=== PATIENT | female | born 1990 | race Caucasian/White ===

== ENCOUNTER 2018-10-26 16:48 | Emergency (ER) | payer MEDICAID ==
[~2018-10-26] VITALS: Ht 161.3 cm; Wt 96.0 kg
[~2018-10-26 16:48] MED LIST: BACTRIM DS1 TAB PO; CIPROFLOXACN500 MG PO; CYCLOBENZAPR10 MG PO; DIFLUCAN100 MG PO; GLYBURID MCR1.5 MG PO; LORTAB 7.5 PO; MACRODANTIN100 MG PO; MOBIC15 M1 PO; NAPROSYN500 MG OR; NAPROXEN500 MG PO; NO HOME MEDS; ORTHO TRI-CYCLEN LO OR; PRENATAL1 TA1; TRAMADOL HCL50 MG PO; ULTRAM50 M1 PO; ZOFRAN ODT4 MG PO; ZOFRAN ODT8 MG PO; ZOFRAN4 MG/TAB PO
[2018-10-26] MEDS ORDERED: LYRICA25 MG PO (17:00)
[2018-10-26] MEDS ORDERED: ATIVAN1 MG PO (17:00)
[2018-10-26] MEDS ORDERED: ADDERALL20 MG PO (17:00)
[2018-10-26] MEDS ORDERED: LYRICA75 MG PO (17:15)
[2018-10-26] MEDS ORDERED: LORAZEPAM0.5 MG PO (17:15)
[2018-10-26] MEDS ORDERED: ADDERALL XR20 MG PO (17:16)
[2018-10-26] MEDS ORDERED: OXCARBAZEPINE300 MG PO (17:16)
[2018-10-26] MEDS ORDERED: JENCYCLA0.35 MG PO (17:17)
[2018-10-26] MEDS ORDERED: CYCLOBENZAPR10 MG PO (17:17)
[2018-10-26] MEDS ORDERED: PAROXETINE HCL30 MG PO (17:17)
[2018-10-26] MEDS ORDERED: GABAPENTIN400 M2 PO (17:18)
[2018-10-26] MEDS ORDERED: PERCOCET 10/31 COMBO PO (18:15)
[2018-10-26 18:40] VITALS: BP 118/86
== END 2018-10-26 18:40 | disposition home or self-care (01) ==
LOC: ED 16:48
DX: S82.64XA Nondisplaced fracture of lateral malleolus of right fibula, initial encounter for closed fracture (principal); W22.8XXA Striking against or struck by other objects, initial encounter; Y93.19 Activity, other involving water and watercraft; Y92.009 Unspecified place in unspecified non-institutional (private) residence as the place of occurrence of the external cause

== ENCOUNTER 2019-07-04 20:12 | Emergency (ER) | payer OTHER, MEDICAID ==
[~2019-07-04] VITALS: Ht 161.3 cm; Wt 91.3 kg
[~2019-07-04 20:12] MED LIST changes: +ADDERALL XR20 MG PO; +ADDERALL20 MG PO; +ATIVAN1 MG PO; +GABAPENTIN400 M2 PO; +JENCYCLA0.35 MG PO; +LORAZEPAM0.5 MG PO; +LYRICA25 MG PO; +LYRICA75 MG PO; +OXCARBAZEPINE300 MG PO; +PAROXETINE HCL30 MG PO; +PERCOCET 10/31 COMBO PO
[2019-07-04] MEDS ORDERED: VOLTAREN - GENE75 MG PO (23:26)
[2019-07-04 23:46] VITALS: BP 129/78
== END 2019-07-04 23:46 | disposition home or self-care (01) | DRG 563 ==
LOC: ED 20:12
DX: S39.012A Strain of muscle, fascia and tendon of lower back, initial encounter (principal); F17.200 Nicotine dependence, unspecified, uncomplicated; V49.40XA Driver injured in collision with unspecified motor vehicles in traffic accident, initial encounter

== ENCOUNTER 2019-08-28 | Emergency (ER) | payer MEDICAID ==
[~2019-08-28] MED LIST changes: +VOLTAREN - GENE75 MG PO
[2019-08-28] MEDS ORDERED: CLONAZEPAM0.5 M1 PO (20:33)
--- NOTE | 2019-08-28 20:33 | NUR ---
BREATHING TREATMENT GIVEN BACK TO BACK FOR WHEEZING.
[2019-08-28 20:56] LABS: HEMATOCRIT 40.5 % (37.0-47.0); IMMATURE GRANULOCYTES 0.3 % (0.0-5.0); MEAN CELL VOLUME 94.2 fL CALC (80.0-100.0); MEAN CORPUSCULAR HGB 30.2 pG CALC (26.0-32.0); MEAN CORPUSCULAR HGB CONC 32.1 g/L CALC (32.0-36.0); NEUT# 9.39 thou/uL (2.00-7.15); RED BLOOD COUNT 4.3 mill/uL (4.20-5.60); RED CELL DISTRI WIDTH 13.1 % (11.5-15.5)
[2019-08-28] MEDS ORDERED: CLARITHROMYCIN500 MG PO (22:16)
== END 2019-08-28 22:42 | disposition home or self-care (01) ==
PROVIDERS: Family Medicine
DX: J40 Bronchitis, not specified as acute or chronic (principal); F17.210 Nicotine dependence, cigarettes, uncomplicated

== ENCOUNTER 2019-11-21 | Emergency (ER) | payer MEDICAID ==
[~2019-11-21] MED LIST changes: +CLARITHROMYCIN500 MG PO; +CLONAZEPAM0.5 M1 PO
[2019-11-21 14:59] LABS: HEMOGLOBIN 12.3 g/dl (12.0-16.0); IMMATURE GRANULOCYTES 0.2 % (0.0-5.0); MEAN CELL VOLUME 92.5 fL CALC (80.0-100.0); MEAN CORPUSCULAR HGB 30.8 pG CALC (26.0-32.0); MEAN CORPUSCULAR HGB CONC 33.2 g/dL CAL (32.0-36.0); NEUT# 8.11 thou/uL (2.00-7.15); RED CELL DISTRI WIDTH 13.1 % (11.5-15.5)
[2019-11-21] MEDS ORDERED: ALPRAZOLAM1 MG PO (15:15)
[2019-11-21 15:21] LABS: ALBUMIN 4.3 g/dL (3.2-5.0); ALKALINE PHOSPHATASE 46 u/l (38-126); ANION GAP 13 (6-22 (CALC)); BILIRUBIN, TOTAL 0.5 mg/dL (0.0-1.4); BUN 8 mg/dL (7-17); BUN/CREATININE RATIO 12 (12-20 (CALC)); CARBON DIOXIDE 25 mmol/l (22-30); CHLORIDE 103 mmol/l (95-108); CREATININE 0.6 mg/dL (0.5-1.0); GFR > 60 ML/MIN (>=60 (CALC)); GFR FOR AFR.AMER. > 60 ML/MIN (>=60 (CALC)); POTASSIUM 3.9 mmol/l (3.5-5.1); SGOT/AST 25 u/l (14-36); SODIUM 137 mmol/l (137-146); TOTAL PROTEIN 7.1 g/dL (6.3-8.2)
[2019-11-21 15:36] LABS: BETA-HCG, QUANT(RESULT NUMBER) 2546 mIU/mL
[2019-11-21 16:10] LABS: URINE BILIRUBIN - DIPSTICK NEGATIVE (NEGATIVE); URINE BLOOD DIPSTICK MODERATE (NEGATIVE); URINE COLOR YELLOW; URINE GLUCOSE - DIPSTICK NEGATIVE (NEGATIVE); URINE KETONE NEGATIVE (NEGATIVE); URINE LEUK ESTERASE NEGATIVE (NEGATIVE); URINE NITRITE - DIPSTICK NEGATIVE (Negative); URINE PROTEIN - DIPSTICK NEGATIVE (NEG-TRACE); URINE SPECIFIC GRAVITY >=1.030; URINE UROBILINOGEN - DIPSTICK 0.2 E.U./dL (0.2)
[2019-11-21 16:15] LABS: URINE SQUAMOUS EPITHELIAL CELL FEW EPI/hpf (0-FEW)
== END 2019-11-21 16:43 | disposition home or self-care (01) ==
DX: O26.891 Other specified pregnancy related conditions, first trimester (principal); R10.2 Pelvic and perineal pain; O99.331 Smoking (tobacco) complicating pregnancy, first trimester; F17.200 Nicotine dependence, unspecified, uncomplicated; O34.81 Maternal care for other abnormalities of pelvic organs, first trimester; N83.201 Unspecified ovarian cyst, right side; Z3A.01 Less than 8 weeks gestation of pregnancy

== ENCOUNTER 2020-01-20 13:36 | Emergency (ER) | payer MEDICAID ==
[~2020-01-20] VITALS: Ht 161.3 cm; Wt 81.8 kg
[~2020-01-20 13:36] MED LIST changes: +ALPRAZOLAM1 MG PO
[2020-01-20] MEDS ORDERED: BUSPAR10 M1 PO (14:12)
[2020-01-20 14:21] LABS: HEMATOCRIT 36.7 % (37.0-47.0); HEMOGLOBIN 12.3 g/dl (12.0-16.0); IMMATURE GRANULOCYTES 0.3 % (0.0-5.0); MEAN CELL VOLUME 92.4 fL CALC (80.0-100.0); MEAN CORPUSCULAR HGB CONC 33.5 g/dL CAL (32.0-36.0); NEUT# 7.53 thou/uL (2.00-7.15); RED BLOOD COUNT 3.97 mill/uL (4.20-5.60); RED CELL DISTRI WIDTH 12.9 % (11.5-15.5)
[2020-01-20 14:22] LABS: URINE BILIRUBIN - DIPSTICK NEGATIVE (NEGATIVE); URINE BLOOD DIPSTICK LARGE (NEGATIVE); URINE COLOR RED; URINE GLUCOSE - DIPSTICK 100 mg/dL (NEGATIVE); URINE KETONE TRACE mg/dL (NEGATIVE); URINE LEUK ESTERASE TRACE (NEGATIVE); URINE PROTEIN - DIPSTICK 100 mg/dL (NEG-TRACE); URINE SPECIFIC GRAVITY >=1.030
[2020-01-20 14:38] LABS: URINE NITRITE - DIPSTICK POSITIVE (Negative)
[2020-01-20 14:39] LABS: URINE BACTERIA FEW hpf; URINE RBC TNTC RBC/hpf (0-5); URINE SQUAMOUS EPITHELIAL CELL FEW EPI/hpf (0-FEW)
[2020-01-20 14:41] LABS: ALBUMIN 4.3 g/dL (3.2-5.0); ALKALINE PHOSPHATASE 44 u/l (38-126); ANION GAP 12 (6-22 (CALC)); BILIRUBIN, TOTAL 0.3 mg/dL (0.0-1.4); BUN 4 mg/dL (7-17); BUN/CREATININE RATIO 8 (12-20 (CALC)); CARBON DIOXIDE 21 mmol/l (22-30); CHLORIDE 102 mmol/l (95-108); CREATININE 0.5 mg/dL (0.5-1.0); GFR > 60 ML/MIN (>=60 (CALC)); GFR FOR AFR.AMER. > 60 ML/MIN (>=60 (CALC)); POTASSIUM 3.9 mmol/l (3.5-5.1); SGOT/AST 21 u/l (14-36); SODIUM 132 mmol/l (137-146)
[2020-01-20 15:31] LABS: BETA-HCG, QUANT(RESULT NUMBER) 62527 mIU/mL
[2020-01-20] MEDS ORDERED: KEFLEX500 M1 PO (17:00)
[2020-01-20 17:08] VITALS: BP 101/64
== END 2020-01-20 17:11 | disposition home or self-care (01) ==
LOC: ED 13:36
DX: O46.91 Antepartum hemorrhage, unspecified, first trimester (principal); O23.41 Unspecified infection of urinary tract in pregnancy, first trimester; O99.331 Smoking (tobacco) complicating pregnancy, first trimester; F17.210 Nicotine dependence, cigarettes, uncomplicated; Z3A.13 13 weeks gestation of pregnancy

== ENCOUNTER 2020-06-21 13:48 | Emergency (ER) | payer MEDICAID ==
[~2020-06-21] VITALS: Ht 161.3 cm; Wt 75.0 kg
[~2020-06-21 13:48] MED LIST changes: +BUSPAR10 M1 PO; +KEFLEX500 M1 PO
[2020-06-21 14:27] LABS: URINE BLOOD DIPSTICK LARGE (NEGATIVE); URINE COLOR YELLOW; URINE GLUCOSE - DIPSTICK NEGATIVE (NEGATIVE); URINE KETONE TRACE mg/dL (NEGATIVE); URINE LEUK ESTERASE TRACE (Negative); URINE NITRITE - DIPSTICK NEGATIVE (Negative); URINE PROTEIN - DIPSTICK 30 mg/dL (NEG-TRACE); URINE SPECIFIC GRAVITY >=1.030; URINE UROBILINOGEN - DIPSTICK 0.2 E.U./dL (0.2)
[2020-06-21 14:39] LABS: URINE BILIRUBIN - DIPSTICK NEGATIVE (NEGATIVE); URINE CLARITY CLOUDY
[2020-06-21 14:40] LABS: URINE RBC 25-50 RBC/hpf (0-5)
[2020-06-21 14:41] LABS: URINE BACTERIA RARE hpf; URINE MUCUS MODERATE hpf (NONE-FEW); URINE SQUAMOUS EPITHELIAL CELL MODERATE EPI/hpf (0-FEW)
[2020-06-21] MEDS ORDERED: BUPROPION HCL150 M1 PO (15:00)
[2020-06-21] MEDS ORDERED: ADDERALL20 MG PO (15:00)
[2020-06-21] MEDS ORDERED: DESYREL50 MG PO (15:01)
[2020-06-21 15:45] VITALS: BP 116/74
== END 2020-06-21 15:45 | disposition home or self-care (01) ==
LOC: ED 13:48
DX: G89.29 Other chronic pain (principal); M54.5 Low back pain; M54.6 Pain in thoracic spine; F17.200 Nicotine dependence, unspecified, uncomplicated

== ENCOUNTER 2021-05-31 07:30 | Day surgery (SDC) | payer MEDICAID ==
[~2021-05-31] VITALS: Ht 161.3 cm; Wt 72.6 kg
[~2021-05-31 07:30] MED LIST changes: +BUPROPION HCL150 M1 PO; +DESYREL50 MG PO; +MOTRIN800 MG PO
[2021-05-31] MEDS ORDERED: LOSARTAN/HCT1 TA1 PO (07:50)
[2021-05-31 09:43] VITALS: BP 112/84
== END 2021-05-31 09:40 | disposition home or self-care (01) ==
LOC: ORM 07:30
PROVIDERS: ATTEND Surgery
DX: K29.50 Unspecified chronic gastritis without bleeding (principal); F17.200 Nicotine dependence, unspecified, uncomplicated; Z90.49 Acquired absence of other specified parts of digestive tract

== ENCOUNTER 2021-06-23 11:10 | Emergency (ER) | payer MEDICAID ==
[~2021-06-23] VITALS: Ht 161.3 cm; Wt 70.4 kg
[~2021-06-23 11:10] MED LIST changes: +LOSARTAN/HCT1 TA1 PO; +OMEPRAZOLE20 MG PO
[2021-06-23] MEDS ORDERED: TIZANIDINE4 MG PO (11:28)
[2021-06-23] MEDS ORDERED: TOPIRAMATE25 M1 PO (11:29)
[2021-06-23 11:47] LABS: HEMATOCRIT 41.2 % (37.0-47.0); HEMOGLOBIN 13.5 g/dl (12.0-16.0); IMMATURE GRANULOCYTES 0.2 % (0.0-5.0); MEAN CELL VOLUME 92.8 fL CALC (80.0-100.0); MEAN CORPUSCULAR HGB 30.4 pG CALC (26.0-32.0); MEAN CORPUSCULAR HGB CONC 32.8 g/dL CAL (32.0-36.0); NEUT# 9.83 thou/uL (2.00-7.15); RED BLOOD COUNT 4.44 mill/uL (4.20-5.60); RED CELL DISTRI WIDTH 12.1 % (11.5-15.5)
[2021-06-23 11:55] LABS: URINE BILIRUBIN - DIPSTICK NEGATIVE (NEGATIVE); URINE BLOOD DIPSTICK TRACE-INTACT (NEGATIVE); URINE COLOR YELLOW; URINE GLUCOSE - DIPSTICK NEGATIVE (NEGATIVE); URINE KETONE NEGATIVE (NEGATIVE); URINE LEUK ESTERASE NEGATIVE (NEGATIVE); URINE PH 8.5 (4.5-8.0); URINE PROTEIN - DIPSTICK 30 mg/dL (NEG-TRACE); URINE UROBILINOGEN - DIPSTICK 0.2 E.U./dL (0.2)
[2021-06-23 12:04] LABS: URINE EPITHELIAL CELLS MODERATE EPI/hpf (0-FEW); URINE NITRITE - DIPSTICK NEGATIVE (Negative); URINE RBC 0-2 RBC/hpf (0-5)
[2021-06-23 12:09] LABS: ACT PARTIAL THROMBO TIME 20.9 SECONDS (20.0-32.5); PROTHROMBIN TIME 10.4 SECONDS (9.0-12.5)
[2021-06-23 12:12] LABS: ALKALINE PHOSPHATASE 42 u/l (38-126); ANION GAP 8 (6-22 (CALC)); BILIRUBIN, TOTAL 0.4 mg/dL (0.0-1.4); BUN 8 mg/dL (7-17); BUN/CREATININE RATIO 11 (12-20 (CALC)); CARBON DIOXIDE 30 mmol/l (22-30); CHLORIDE 103 mmol/l (95-108); CREATININE 0.7 mg/dL (0.5-1.0); ETHYL ALCOHOL 0 mg/dl (0-30); GFR > 60 ML/MIN (>=60 (CALC)); GFR FOR AFR.AMER. > 60 ML/MIN (>=60 (CALC)); LIPASE 108 u/l (23-300); POTASSIUM 3.7 mmol/l (3.5-5.1); SGOT/AST 45 u/l (14-36); SODIUM 137 mmol/l (137-146); TOTAL PROTEIN 7.2 g/dL (6.3-8.2)
[2021-06-23 13:47] VITALS: BP 106/63
== END 2021-06-23 13:47 | disposition home or self-care (01) ==
LOC: ED 11:10
DX: R55 Syncope and collapse (principal); S00.83XA Contusion of other part of head, initial encounter; S16.1XXA Strain of muscle, fascia and tendon at neck level, initial encounter; M54.50 Low back pain, unspecified; G89.29 Other chronic pain; I10 Essential (primary) hypertension; F17.210 Nicotine dependence, cigarettes, uncomplicated; W18.39XA Other fall on same level, initial encounter; Y92.002 Bathroom of unspecified non-institutional (private) residence as the place of occurrence of the external cause; Z20.822 Contact with and (suspected) exposure to COVID-19

== ENCOUNTER 2022-02-28 16:53 | Emergency (ER) | payer MEDICAID ==
[~2022-02-28] VITALS: Ht 161.3 cm; Wt 77.2 kg
[2022-02-28] VITALS (13 sets, daily range): BP systolic 98–131; BP diastolic 63–95
[~2022-02-28 16:53] MED LIST changes: +TIZANIDINE4 MG PO; +TOPIRAMATE25 M1 PO
[2022-02-28 17:45] LABS: HEMATOCRIT 34.1 % (37.0-47.0); HEMOGLOBIN 11.2 g/dl (12.0-16.0); IMMATURE GRANULOCYTES 0.1 % (0.0-5.0); MEAN CELL VOLUME 95.8 fL CALC (80.0-100.0); MEAN CORPUSCULAR HGB 31.5 pG CALC (26.0-32.0); MEAN CORPUSCULAR HGB CONC 32.8 g/dL CAL (32.0-36.0); NEUT# 6.6 thou/uL (2.00-7.15); RED BLOOD COUNT 3.56 mill/uL (4.20-5.60); RED CELL DISTRI WIDTH 12.3 % (11.5-15.5)
[2022-02-28 18:01] LABS: ALBUMIN 4.2 g/dL (3.2-5.0); ALKALINE PHOSPHATASE 27 u/l (38-126); ANION GAP 11 (6-22 (CALC)); BILIRUBIN, TOTAL 0.6 mg/dL (0.0-1.4); BUN 10 mg/dL (7-17); BUN/CREATININE RATIO 14 (12-20 (CALC)); CARBON DIOXIDE 25 mmol/l (22-30); CHLORIDE 107 mmol/l (95-108); CREATININE 0.7 mg/dL (0.5-1.0); ETHYL ALCOHOL 0 mg/dl (0-30); GFR FOR AFR.AMER. > 60 ML/MIN (>=60 (CALC)); GFR OTHER RACES > 60 ML/MIN (>=60 (CALC)); POTASSIUM 4.3 mmol/l (3.5-5.1); SGOT/AST 21 u/l (14-36); SODIUM 139 mmol/l (137-146); TOTAL PROTEIN 7.2 g/dL (6.3-8.2)
[2022-02-28 18:13] LABS: INTERNATIONAL NORMALIZED RATIO 1.1 RATIO (0.7-1.3); PROTHROMBIN TIME 10.6 SECONDS (9.0-12.5)
[2022-02-28 19:24] LABS: URINE BILIRUBIN - DIPSTICK NEGATIVE (NEGATIVE); URINE BLOOD DIPSTICK NEGATIVE (NEGATIVE); URINE COLOR YELLOW; URINE GLUCOSE - DIPSTICK NEGATIVE (NEGATIVE); URINE KETONE NEGATIVE (NEGATIVE); URINE LEUK ESTERASE NEGATIVE (NEGATIVE); URINE PH 5.5 (4.5-8.0); URINE PROTEIN - DIPSTICK 30 mg/dL (NEG-TRACE); URINE SPECIFIC GRAVITY >=1.030; URINE UROBILINOGEN - DIPSTICK 0.2 E.U./dL (0.2)
[2022-02-28 19:25] LABS: URINE NITRITE - DIPSTICK NEGATIVE (Negative)
[2022-02-28 19:26] LABS: URINE RBC 0-2 RBC/hpf (0-5); URINE SQUAMOUS EPITHELIAL CELL RARE EPI/hpf (0-FEW); URINE WBC 0-2 WBC/hpf (0-5)
== END 2022-02-28 20:24 | disposition left against medical advice (07) ==
LOC: ED 16:53
PROVIDERS: Nurse Practitioner
DX: R55 Syncope and collapse (principal); Z53.29 Procedure and treatment not carried out because of patient's decision for other reasons

== ENCOUNTER 2023-08-04 08:31 | Emergency (ER) | payer MEDICAID ==
[~2023-08-04] VITALS: Ht 167.6 cm; Wt 77.0 kg
[2023-08-04 08:45] VITALS: BP 132/95
[2023-08-04 09:00] VITALS: BP 100/69
[2023-08-04 09:15] VITALS: BP 116/75
[2023-08-04] MEDS ORDERED: BACTRIM DS1 TAB PO (09:21)
[2023-08-04] MEDS ORDERED: CEPHALEXIN500 MG PO (09:21)
[2023-08-04] MEDS ORDERED: NAPROXEN500 MG PO (09:21)
[2023-08-04 09:30] VITALS: BP 97/62
[2023-08-04 09:31] VITALS: BP 97/62
== END 2023-08-04 09:38 | disposition home or self-care (01) ==
LOC: ED 08:31
DX: L02.512 Cutaneous abscess of left hand (principal); I10 Essential (primary) hypertension; F31.9 Bipolar disorder, unspecified; F17.200 Nicotine dependence, unspecified, uncomplicated